=== PATIENT | female | born 1990 | race Caucasian/White ===

== ENCOUNTER 2018-11-15 21:58 | Emergency (ER) | payer OTHER ==
[2018-11-15 22:14] VITALS: RESP 16
--- NOTE | 2018-11-15 22:56 | ED ---
Fall HPI - General Chief Complaint: Fall Stated Complaint: Ankle injury, about 10 weeks Time Seen by Provider: 11/15/18 22:55 Source: patient, RN notes reviewed, old records reviewed Mode of arrival: ambulatory - History of Present Illness Initial Comments: This is a 20-year-old female the ER for evaluation. Patient resents today for evaluation regarding ankle pain ankle pain and abdominal pain at [place]. Patient having ankle pain and abdominal pain, no bleeding, patient has no other injury noted. No bleeding or vaginal discharge. MD Complaint: fall -: hour(s) Fall From: standing When Fall Occurred: unsure Fall Witnessed: yes, by bystander, yes, by living facility staff Place Fall Occurred: home Loss of Consciousness: none Prolonged Down Time?: no Symptoms Prior to Fall: none Location: abdomen Location - Extremities: Left: Ankle, Right: Ankle Severity: mild Severity scale (1-10): 2 Quality: burning Context: tripped/slipped Associated Symptoms: denies - Related Data Home Medications Medication Instructions Recorded Confirmed Acetaminophen [Tylenol Arthritis] 650 mg PO Q4H 11/15/18 11/15/18 Levothyroxine Sodium [Synthroid] 150 mcg PO DAILY 11/15/18 11/15/18 Methadone [Dolophine] 10 mg PO DAILY 11/15/18 11/15/18 [id number] Acid 1 cap PO DAILY 11/15/18 11/15/18 [-U Capsule (formulary)] Allergies Allergy/AdvReac Type Severity Reaction Status Date / Time No Known Allergies Allergy Verified 11/15/18 23:20 Review of Systems ROS Statement: Those systems with pertinent positive or pertinent negative responses have been documented in the HPI. ROS Other: All systems not noted in ROS Statement are negative. Past Medical History Past Medical History: Thyroid Disorder History of Any Multi-Drug Resistant Organisms: None Reported Past Surgical History: No Surgical Hx Reported Past Psychological History: Depression, Panic Disorder Smoking Status: Current every day smoker Past Alcohol Use History: None Reported Past Drug Use History: Heroin General Exam Limitations: no limitations General appearance: alert, in no apparent distress Head exam: Present: atraumatic, normocephalic, normal inspection Eye exam: Present: normal appearance, PERRL, EOMI. Absent: scleral icterus, conjunctival injection, periorbital swelling ENT exam: Present: normal exam, mucous membranes moist Neck exam: Present: normal inspection. Absent: tenderness, meningismus, lymphadenopathy Respiratory exam: Present: normal lung sounds bilaterally. Absent: respiratory distress, wheezes, rales, rhonchi, stridor Cardiovascular Exam: Present: regular rate, normal rhythm, normal heart sounds. Absent: systolic murmur, diastolic murmur, rubs, gallop, clicks GI/Abdominal exam: Present: soft, normal bowel sounds. Absent: distended, tenderness, guarding, rebound, rigid Extremities exam: Present: normal inspection, full ROM, normal capillary refill. Absent: tenderness, pedal edema, joint swelling, calf tenderness Back exam: Present: normal inspection Neurological exam: Present: alert, oriented X3, CN II-XII intact Psychiatric exam: Present: normal affect, normal mood Skin exam: Present: warm, dry, intact, normal color. Absent: rash Course Vital Signs 11/15/18 11/16/18 22:10 00:41 Temperature 98.9 F 98.1 F Pulse Rate 85 81 Respiratory 16 16 Rate Blood Pressure 102/65 103/64 O2 Sat by Pulse 99 98 Oximetry Medical Decision Making - Medical Decision Making 20 female the ER for evaluation. Patient resents today for evaluation of bilateral ankle pain after fall. Patient also concern for abdominal injury. No bleeding, no pain. Patient has ultrasound and x-rays which are negative for acute disease - Lab Data Lab Results 11/15/18 Range/Units 22:59 Urine Color Light Yellow Urine Appearance Clear (Clear) Urine pH 7.0 (5.0-8.0) Ur Specific [place] 1.015 (1.001-1.035) Urine Protein Negative (Negative) Urine Glucose (UA) Negative (Negative) Urine Ketones Negative (Negative) Urine Blood Negative (Negative) Urine Nitrite Negative (Negative) Urine Bilirubin Negative (Negative) Urine Urobilinogen <2.0 (<2.0) mg/dL Ur Leukocyte Esterase Negative (Negative) - Radiology Data Radiology results: report reviewed (Ultrasound is negative for acute disease, bilateral lower extremity x-rays of ankle are negative for acute disease), image reviewed Disposition Clinical Impression: Fall, Disposition: HOME SELF-CARE Condition: Good Instructions (If sedation given, give patient instructions): (ED), Fall Prevention for Older Adults (ED) Is patient prescribed a controlled substance at d/c from ED?: No Referrals: Nonstaff,Physician [Primary Care Provider] - 1-2 days
[2018-11-15 23:07] LABS: Appearance,Urine Clear (Clear); Bilirubin,Urine Negative (Negative); Blood,Urine Negative (Negative); Color,Urine Light Yellow; Glucose,Urine (UA) Negative (Negative); Ketones,Urine Negative (Negative); Leukocyte Esterase,Urine Negative (Negative); Nitrite,Urine Negative (Negative); Protein,Urine Negative (Negative); Specific Gravity,Urine 1.015 (1.001-1.035); Urobilinogen,Urine <2.0 mg/dL (<2.0)
--- NOTE | 2018-11-15 23:45 | XR ---
EXAM: XR Left Ankle Complete, 3 or More Views XR Right Ankle Complete, 3 or More Views CLINICAL HISTORY: ITS.REASON XR Reason: Pain TECHNIQUE: Frontal, lateral and oblique views of the bilateral ankles. COMPARISON: No relevant prior studies available. FINDINGS: Bones/joints: Unremarkable. No acute fracture. No dislocation. Soft tissues: Unremarkable. IMPRESSION: Normal bilateral ankle x-rays.
--- NOTE | 2018-11-16 00:38 | US ---
EXAM: US First Trimester, Transabdominal US , Transvaginal CLINICAL HISTORY: ITS.REASON US Reason: Pain TECHNIQUE: Real-time transabdominal and transvaginal obstetrical ultrasound of the maternal pelvis and a first trimester with image documentation. Transvaginal imaging was used for better evaluation of the fetus and adnexa. COMPARISON: No relevant prior studies available. FINDINGS: Dates by LMP: (9 weeks/6 days) EDC: 06/14/2019 Dates by First Scan: No previous this is first scan Dates by Current Scan for: (8 weeks/3 days) EDC: 06/24/2019 MATERNAL ANATOMY Uterus: 11 x 5.9 x 7.3 cm Right Ovary: 2.6 x 1.9 x 2.0 cm. Left Ovary: 3.0 x 1.8 x 2.4 cm Post CDS / Adnexa: Within normal limits. Presence of free fluid: no Presence of corpus luteal cyst: no Presence of subchorionic bleed: no GESTATION / SURVEY CRL: 1.91cm (8 weeks/3 days) Yolk Sac (normal less than 6mm): 4mm Heart Rate: 168 bpm Rhythm: Normal IUP: Viable IUP IMPRESSION: Single live intrauterine without abnormality, measuring 8 weeks 3 days by ultrasound.
[2018-11-16 00:43] VITALS: BP 103/64; PULSE 81; TEMP 98.1
== END 2018-11-16 00:43 | disposition home or self-care (01) ==
LOC: EC 21:58
DX: O99.89 Other specified diseases and conditions complicating pregnancy, childbirth and the puerperium (principal); M25.571 Pain in right ankle and joints of right foot; M25.572 Pain in left ankle and joints of left foot; R10.9 Unspecified abdominal pain; O99.281 Endocrine, nutritional and metabolic diseases complicating pregnancy, first trimester; E07.9 Disorder of thyroid, unspecified; O99.331 Smoking (tobacco) complicating pregnancy, first trimester; F17.200 Nicotine dependence, unspecified, uncomplicated; Z79.890 Hormone replacement therapy; Z79.891 Long term (current) use of opiate analgesic; Z79.899 Other long term (current) drug therapy; Z3A.10 10 weeks gestation of pregnancy; W01.0XXA Fall on same level from slipping, tripping and stumbling without subsequent striking against object, initial encounter; Y93.6A Activity, physical games generally associated with school recess, summer camp and children; Y92.009 Unspecified place in unspecified non-institutional (private) residence as the place of occurrence of the external cause
CPT/HCPCS: 76801; 81003; 87086; 99284